=== PATIENT | male | born 1950 | race Caucasian/White ===

== ENCOUNTER 2021-10-29 15:53 | Emergency (ER) | payer MEDICARE ==
[~2021-10-29] VITALS: Ht 167.6 cm; Wt 99.8 kg
[2021-10-29] MEDS ORDERED: HYDROXYZINE HCL50 MG PO (19:08)
[2021-10-29] MEDS ORDERED: CLONIDINE HCL0.1 MG PO (19:08)
[2021-10-29] MEDS ORDERED: DOXYCYCLINE HY100 MG PO (19:21)
== END 2021-10-29 22:52 | disposition home or self-care (01) ==
LOC: ED 15:53
DX: L03.114 Cellulitis of left upper limb (principal)
CPT/HCPCS: 36415; 80053; 85025; 96365; 96366; 99283-25; J3370; J7060

== ENCOUNTER 2021-12-15 18:58 | Inpatient (IN) | payer MEDICARE ==
[~2021-12-15] VITALS: Ht 167.6 cm; Wt 85.8 kg
[~2021-12-15 18:58] MED LIST: CLONIDINE HCL0.1 MG PO; DOXYCYCLINE HY100 MG PO; HYDROXYZINE HCL50 MG PO
[2021-12-15] MEDS ORDERED: ARICEPT10 MG PO (21:04)
[2021-12-15] MEDS ORDERED: DICLOFENAC SOD100 GM TOP (21:04)
[2021-12-15] MEDS ORDERED: SEROQUEL50 MG PO (21:05)
[2021-12-15] MEDS ORDERED: PROTONIX40 MG PO (21:05)
[2021-12-15] MEDS ORDERED: SILDENAFIL20 MG PO (21:08)
[2021-12-15] MEDS ORDERED: TYLENOL EXTRA500 MG PO (21:10)
--- NOTE | 2021-12-15 23:27 | NUR ---
REPORT RECEIVED FROM ED. RHONA VENEGAS, WILL CONTINUE PLAN OF CARE WHEN PT ARRIVES TO THE UNIT.
--- NOTE | 2021-12-16 00:50 | NUR ---
PT ARRIVED TO THE UNIT AWAKE, ORIENTED ONLY TO SELF. PT BROUGHT DOWN VIA STRETCHER WITH HIS BELONGINGS. DRAW SHEETS USED TO TRANSFER PT TO THE CCU BED. VITALS THEN TAKEN (SEE CHART). PT ABLE TO ANSWER SOME QUESTIONS SUCH REPORTING PAIN, FEELING COLD. PT UNABLE TO ANSWER HEALTH HISTORY/ADMISSION QUESTIONS AT THIS TIME. PT IVF STARTED AND INFUSING AT ORDERED RATE PRN TYLENOL ADMINISTERED FOR FEVER (SEE MAR). ARAUZ THEN PLACED PER PROTOCOL, STERILE PROCEDURE FOLLOWED, 100ML OF URINE OBTAINED AFTER INSERTION. PT TOLERATED PLACEMENT OF ARAUZ WELL. PT ASSESSMENT COMPLETED. EYES PERRLA, PT ABLE TO FOLLOW SIMPLE COMMANDS AT TIMES. LUNGS CLEAR, HEART RATE TACHYCARED BUT REGULAR IN RYTHM, ACTIVE BOWEL TONES PRESENT, ABDOMEN SOFT, NO PAIN WHEN PALPATED. RADIAL AND PEDAL PULSES STRONG, SKIN INTACT. PT NOW RESTING IN BED AND REPORTS NO NEEDS WHEN ASKED. PT PROVIDED WITH SIPS OF ICE WATER. CALL LIGHT IN REACH, BED IN LOWEST POSITION, BED ALARM ON, WILL CONTINUE PLAN OF CARE.
--- NOTE | 2021-12-16 02:10 | NUR ---
PT LAYING IN BED SLEEPING AT THIS TIME ON ROOM AIR, IVF INFUSING ORDERED. VITALS TAKEN, AXILLARY TEMP 99.5. PT ARAUZ OUTPUT 75ML FOR 1.5 HRS. URINE IS CLEAR/YELLOW. PT AWOKE EASILY AND REPORTED NO NEEDS WHEN ASKED, PT STILL ORIENTED ONLY TO SELF. PT RETURNED BACK TO SLEEP. NO FURTHER NEEDS ASSESSED AT THIS TIME. CALL LIGHT IN REACH, BED IN LOWEST POSITION, BED ALARM ON, WILL CONTINUE PLAN OF CARE.
--- NOTE | 2021-12-16 04:30 | NUR ---
PT LAYING IN BED SLEEPING, IVF INFUSING ORDERED. PT TEMPERATURE ASSESSED AND WAS 99.2 AXILLARY. URINE OUTPUT IN ARAUZ 250ML CLEAR/YELLOW. PT AWOKE EASILY AT THIS TIME AND WAS ORIENTED TO SELF. PT REORIENTED TO SURROUNDINGS AND SITUATION. PT REPORTED BACK PAIN AND GENERAL ACHES BUT REPORTS FEELING BETTER WHEN ASKED. PRN TYLENOL ADMINISTERED FOR PAIN (SEE MAR). PT ABLE TO TAKE PO MEDICATION AND WATER WITHOUT DIFFICULTY. ASSESSMENT COMPLETED AFTERWARDS (SEE CHART). PT REPORTS NO FURTHER NEEDS AFTERWARDS, HEAD OF BED LOWERED, PT NOW RESTING IN BED WITH EYES CLOSED. CALL LIGHT IN REACH, BED IN LOWEST POSITION, BED ALARM ON, IVF INFUSING, WILL CONTINUE PLAN OF CARE.
--- NOTE | 2021-12-16 05:50 | NUR ---
PT IV ABX STARTED AND INFUSING ORDERED ALONG WITH IV ABX. PT RESTING IN BED SLEEPING AT THIS TIME AND WAS LEFT UNDISTURBED. RESPIRATIONS NOTED AND ARE EVEN AND UNLABORED. CALL LIGHT IN REACH, BED IN LOWEST POSITION, BED ALARM ON, WILL CONTINUE PLAN OF CARE.
--- NOTE | 2021-12-16 06:33 | NUR ---
PT LAYING IN BED ON ROOM AIR, IVF AND IV ABX INFUSING ORDERED. PT AWOKE EASILY BUT IS DROWSY. PT ORIENTED TO SELF BUT FORGETFUL AND WAS REORIENTED. SCHEDULED PO MEDICATION ADMINISTERED (SEE NOV). PT PROVIDED WITH ICE WATER. PT REPORTS NO FURTHER NEEDS AT THIS TIME WHEN ASKED, CALL LIGHT IN REACH, BED IN LOWEST POSITION, WILL CONTINUE PLAN OF CARE.
--- NOTE | 2021-12-16 08:59 | NUR ---
ASSESSMENT COMPLETED. PT ORIENTED TO SELF. LUNGS SOUND CLEAR THROUGHOUT. HR IN THE 90S. BREATHING EVEN AND UNLABORED. SPO2 =100% ON ROOM AIR. PT PAINFUL TO TOUCH IN EXTREMITIES. LIMITED MOBILITY IN ARMS. TRACE EDEMA IN BILATERAL LOWER LEGS. URINE COMING OUT OF ARAUZ CATHETER IS YELLOW, NO ODOR NOTED. IV LFUIDS INFUSING ALONG WITH ABX (SEE EMAR). MEDICATIONS ADMINISTERED. BED ALARM ON AND CALL LIGHT WITHIN REACH. WILL CONTINUE TO MONITOR.
--- NOTE | 2021-12-16 10:30 | NUR ---
STUDENT NURSE IN TO DO BED BATH. PT PAINFUL WITH TOUCH AND ANY MOVEMENT. POINTS OF PAIN PRIMARILY IN RIGHT ARM AND NECK. PER SECURITY AUDITOR AT [facility], PT NORMALLY AMBULATES INDEPENDENTLY AT BASELINE AND HAS BEEN COMPLAINING OF NOT FEELING WELL FOR THE LAST THREE DAYS. DR HOLLINS UPDATED WITH THIS INFORMATION AND ASSESSMENT FINDINGS. PLAN FOR PT TO GET A CT ESTABLISHED.
--- NOTE | 2021-12-16 12:11 | NUR ---
PT BACK FROM CT. PAIN WITH MOVMENT, PARTICULARILY PAINFUL WITH ANY MOVEMENT OF NECK. HEART RATE IN THE 70S SPO2 =96% ON ROOM AIR. BLOOD PRESSURE WNL. SECOND DOSE OF MAGNESIUM NOW INFUSING.
--- NOTE | 2021-12-16 13:55 | NUR ---
pt incontinent of urine. Two people required to provide incontient care. Pt very stiff and difficult to roll. Repositioned in bed
--- NOTE | 2021-12-16 15:16 | NUR ---
lumbar puncture completed by AMRIK John. Well tolerated by PT. specimens sent to lab
--- NOTE | 2021-12-16 17:18 | NUR ---
ASSESSMENT COMPLETED. PT HAD LARGE INCONTINENT VOID. COMPLETE BED CHANGE REQUIRED. PT HAS STAGE ONE WOUND ON COCCYX, PHOTOS TAKEN AND PLACED IN CHART. ALLEVYN DRESSING NOW IN PLACE. PT SHIVERING AND CONTINUES TO COMPLAIN OF GENERALIZED PAIN, WORSE IN RIGHT ARM. HEART RATE IN THE 90S, RESPIRATIONS IN THE MID 20S. AXILLARY TEMPERATURE OF 100.8 PRN TYLENOL GIVEN. IV FLUIDS AND ABX CONTINUE TO INFUSE (SEE EMAR). PILLOW PLACED UNDER BOTH ARM AND HEEL PROTECTORS ON FEET. WILL CONTINUE TO CLOSELY MONITOR.
--- NOTE | 2021-12-16 17:41 | NUR ---
DR HOLLINS UPDATED ON PTS TEMP AND ASSESSMENT FINDINGS. TWO SETS OF BLOOD CULTURES ORDERED AT THIS TIME. WILL CONTINUE CLOSELY MONITOR.
--- NOTE | 2021-12-16 18:45 | NUR ---
LAB IN TO DRAW BLOOD CULTURES.
--- NOTE | 2021-12-17 07:35 | NUR ---
REPORT RECIEVED, CARE OF PT ASSUMED AT THIS TIME.
--- NOTE | 2021-12-17 08:50 | NUR ---
ASSESSMENT AND MEDICATION ADMINISTRATION COMPLETED. PT ALERT BUT TOTALLY DISORIENTED. APPEARS LESS PAINFUL. MORE RANGE OF MOTION IN RIGHT ARM HAS IMPROVED. NECK STILL IN A HYPER EXTENDED POSITION WITH LIMITED MOTION. PT STILL STIFF. BED BATH AND PERICARE COMPLETED. PT FEARFUL WITH TURNING IN BED AND UNABLE TO ASSIST. PT TOLERATED MEDICATION ADMINISTRATION WELL AND IS NOW BEING FED BREAKFAST BY IZABELLA MELGOZA. AXILLARY TEMP OF 99.9, PT ALSO SHIVERING. IV FLUIDS AND ABX INFUSING. WILL CONTINUE TO MONITOR.
--- NOTE | 2021-12-17 13:39 | NUR ---
ASSESSMENT COMPLETED PT INCONTINENT OF URINE. PERICARE PROVIDED BY TWO RNS, NO REPOSTIONED ONTO LEFT SIDE. IV FLUIDS INFUSING. CALL LIGHT WITHIN REACH. WILL CONTINUE TO MONITOR.
--- NOTE | 2021-12-17 14:23 | EKG ---
[facility] [address] [facility] [place] [address] Signed Sinus tachycardia Inferior infarct , age undetermined Abnormal ECG No previous ECGs available Confirmed by BLANCA HOLLINS MD ([id number]) on 12/17/2021 2:23:10 PM Electronically Signed By: BLANCA HOLLINS MD 12/17/21 1423 PATIENT NAME: FELIX GUZMAN Electrocardiogram DATE OF : 46 PHYSICIAN: BLANCA HOLLINS MD REPORT #: [id number] REPORT IS CONFIDENTIAL AND NOT TO BE RELEASED WITHOUT AUTHORIZATION
--- NOTE | 2021-12-17 14:40 | NUR ---
PT INCONTINENT. PROVIDED ANA CARE AND REPOSITIONED IN BED. AXILLARY TEMP OF 100.5. MD NOTIFIED. NO NEW ORDERS AT THIS TIME.
--- NOTE | 2021-12-18 07:30 | NUR ---
RECEIVED REPORT FROM WINDOW DRESSER AND PERFORMED MORNING ASSESSMENT. PT IS ORIENTED TO SELF AND RESPONDS TO VOICE. PT EXPERIENCES PAIN IN ALL EXTREMETIES WITH ANY MOVEMENT AND REPORTS PAIN IN STOMACH WITH PALPATION. ALL VITALS ARE WNL BESIDES TEMP OF 100.3 TAKEN AXILLARY. ZOSYN PIGGYBACK LR IS INFUSING AT 25 MLS/HR IN RFA (20G). PERFORMED MEDICATION ADMINISTRATION AND BEGAN ACYCLOVIR AT 250 MLS/HR IN LAC (20G). ORAL MEDS WERE GIVEN WITH WATER AND PT TOLERATED WELL WITH NO DIFFICULTY SWALLOWING. REPOSITIONED PT IN BED AND IS NOW RESTING. CALL LIGHT WITHIN REACH, BED RAILS UP, WILL CONTINUE TO MONITOR.
[2021-12-18] MEDS ORDERED: LISINOPRIL-HCT1 EAC2 PO (08:59)
--- NOTE | 2021-12-18 09:00 | NUR ---
ASSISTED PT WITH EATING BREAKFAST. PT SWALLOWED LITTLE AMOUNT OF EGGS AND MILK WITH NO DIFFICULTY SWALLOWING. PT REQUESTING TO NOW REST. WILL CONTINUE TO MONITOR.
[2021-12-18] MEDS ORDERED: QUETIAPINE FUMA50 MG PO (09:03)
--- NOTE | 2021-12-18 09:06 | NUR ---
medications reconciled using MARS from [facility]ha Thomas. Changes noted
--- NOTE | 2021-12-18 10:00 | NUR ---
MORE ALERT. AM CARES GIVEN. TOLERATED WELL. ARAUZ CATH PATENT.
--- NOTE | 2021-12-18 11:30 | NUR ---
DR. HOLLINS HERE TO SEE PATIENT. PLAN TO KEEP PATIENT IN CCU WITH CURRENT TREATMENT.
--- NOTE | 2021-12-18 13:00 | NUR ---
TOOK LUNCH WELL. FED PATIENT APPROX 90 % OF LUNCH. PATIENT IS ABLE TO MOVE HIS ARMS/HANDS. WAS ABLE TO TAKE A FEW BITES OF LUNCH ON HIS OWN. NO COUGH NOTED WHEN SWALLOWING. CONTINUE TO HAVE INCREASED PAIN WITH MOVEMENT. ENC PATIENT TO ATTEMPT TO MOVE HIS LEGS. WHEN TURNING PATIENT, COMPLAINS OF INCREASE PAIN. PATIENT HAVINE DIFFICULTY TRACKING THOUGHTS.
--- NOTE | 2021-12-18 15:30 | NUR ---
HAS BEEN TALKING MORE TODAY, HOWEVER HAS DISORGANIZED THOUGHTS.
--- NOTE | 2021-12-18 19:08 | NUR ---
RESTING WITH HOB ELEVATED. REPORT TO NEXT SHIFT.
--- NOTE | 2021-12-18 20:00 | NUR ---
Pt is awake in bed, wathcing tv. Pleasant mood. Call light within reach. Compliant with assessment and answers questions appropriately. Denies pain. No signs of discomfort noted. VSS. IVF infusing as ordered. Navas catheter is patent with yellow urine draining to bag. Will cont to monitor.
--- NOTE | 2021-12-18 22:00 | NUR ---
Pt was compliant with medication administration; took meds whole w/ water w/o noted difficulty. Pt uses call light & verbalizes needs appropriately. VSS. Will continue to monitor.
--- NOTE | 2021-12-19 01:00 | NUR ---
Pt is resting in bed w/ his eyes closed at this time and appears comfortable. IVF infusing as ordered. Patent jones catheter with yellow urine draining to bedside bag. VSS. Call light w/in reach. Will continue to monitor.
--- NOTE | 2021-12-19 03:59 | NUR ---
Pt is resting in bed with his eyes closed and appears comfortable. VSS. IV patent with ivf infusing as ordered. Navas catheter patent and draining clear, yellow urine. No signs of pain or distress noted. Call light within reach. Will cont to monitor.
--- NOTE | 2021-12-19 08:35 | NUR ---
IN PATIENT'S ROOM FOR BREAKFAST, MEDS, ASSESSMENT AND VITAL SIGNS. PT STATES HE IS JUST WAKING UP AND HAS A HARD TIME STATING YEAR CORRECTLY, BUT DOES STATE NAME AND CORRECT. PT STATES HE IS HAVING PAIN IN HIS LITTLE FINGERS. PT ALSO NOTED TO BE STIFF IN BED, AND MOVING ANY EXT CAUSES DISCOMFORT. PT STATES HE NORMALLY LIVES IN [place], [place] AND THAT WE ARE CURRENTLY IN [place]. WHEN REORIENTED TO THAT HE IS IN THE HOSPITAL, HE STATES,"OH I AM?" NOW HELPING PATIENT TO EAT BREAKFAST. PT BOOSTED IN BED AND SAT UP MUCH TOLERATED. PT ON ROOM AIR AND APPEARS TO BE BREATHING COMFORTABLY W/O SIGNS OF DISTRESS. LUNGS ARE CLEAR ANTERIORLY WITH DIM BASES. PT HAS GEN EDEMA THROUGHOUT. ARAUZ DRAINING CLEAR YELLOW URINE. CONTINUE TO MONITOR.
--- NOTE | 2021-12-19 10:35 | NUR ---
Attempted to speak with pt and he is unable to answer questions. He believes he lives in [place] and his son is there also. He is able to state his joints hurt. He does not believe he uses a walker. Discussed with nurses I will call [facility] Thomas. Called and spoke with Tala. She states this pt has resided with them for approx. 1 year. His son, Felipe lives in [place] and is his Guardian/conservator. Pt is able to walk with out issue, he uses a shower chair for safety, but no other DME. Pt has Alzheimers and attemptes to leave and to get rides to [place] where he believes he lives with his family. Pt has been experiencing increased pain in his joints for the last 2-3 months and was given diclofenic gel by his PCP. Pt currently has a jones catheter in place. Per Radha Thomas pt may return when discharged.
--- NOTE | 2021-12-19 11:00 | NUR ---
DR. HOLLINS IN TO SEE PATIENT. PATIENT STATES, "WE ARE AT THAT PLACE, WITH THE DRY SPELLS," WHEN ASKED HOW HE IS FEELING AND WHERE HE IS CURRENTLY. PATIENT STILL PAINFUL IN HIS JOINTS THROUGHOUT, WITH ANY MOVEMENT OR TOUCHING OF ANY JOINT CAUSES PAIN. LABS TO BE DRAWN AND MEDS TO BE GIVEN. PT HELPED TO REPOSITION TO RIGHT SIDE AND POSITIONED WITH PILLOWS. PT VERY FEARFUL OF FALLING AND FALLING FORWARD WHEN NOT REALLY IN A CLOSE POSITION TO FALL. PT'S SENSE OF BALANCE SEEMS ALTERED. IV FLUIDS TO BE DECREASED TO 50 ML/HR.
--- NOTE | 2021-12-19 11:45 | NUR ---
LAB IN TO DRAW LABS.
--- NOTE | 2021-12-19 12:24 | NUR ---
REQUEST FOR RECORDS SENT TO [facility] IN [place] FOR PATIENT'S LAST 2 DISCHARGE SUMMARY'S, WELL LAST VISIT NOTE FROM HIS ONCOLOGIST. NOW RECEIVING THESE RECORDS ON FAX MACHINE. PT ASSESSMENT COMPLETE. PT REMAINS PLEASANTLY CONFUSED. PT HELPED TO EAT ABOUT 40-50% OF HIS LUNCH. PT TALKING ABOUT CATS THAT AREN'T IN THE ROOM, AND SAYING OTHER THINGS THAT INDICATE HALLUCINATIONS OR CONFUSION TO CURRENT PLACE. PT REMAINS IN A SINUS RHYTHM, HR IN THE 80s. LAST BP 126/83. ONE TIME DOSE OF TORADOL GIVEN AND WILL SEE HOW PATIENT'S PAIN SEEMS AFTER THIS DOSE.
--- NOTE | 2021-12-19 14:03 | NUR ---
ECHO IN ROOM WITH PATIENT. PATIENT TURNED TO LEFT SIDE AND POSITIONED WITH PILLOWS FOR COMFORT. PT SEEMS MORE COMFORTABLE OVERALL AND LESS PAINFUL WHEN BEING TURNED. PATIENT REMAINS ON ROOM AIR. BED BATH TO BE GIVEN AFTER ECHO.
--- NOTE | 2021-12-19 14:29 | NUR ---
ECHO DONE. PT CONTINUES TO REST-CURRENTLY ASLEEP AND APPEARS COMFORTABLE. BED BATH TO BE GIVEN. SP02 IS 94% ON ROOM AIR.
--- NOTE | 2021-12-19 15:00 | NUR ---
Bed bath given and linens changed. Pt tolerated fairly well, he did express some discomfort with rolling to sides and gianni care. Repositioned pt to right side with pillows. Pt was less interactive than this morning, responds to verbal stimulus still but minimally. He also had more difficulty swallowing PO potassium than he did this morning and required repeated coaching.
--- NOTE | 2021-12-19 15:53 | NUR ---
Assessment done, pt resting with eyes closed for exam.
--- NOTE | 2021-12-19 16:48 | NUR ---
DR. HOLLINS UPDATED ON DECREASED LOC AND GOOD RESPONSE TO LASIX WITH 875 ML URINE OUT. PLAN TO CONTINUE TO MONITOR AND HOLD PO MEDS FOR NOW, AND REASSESS WHEN HE IS MORE AWAKE.
--- NOTE | 2021-12-19 17:20 | NUR ---
Went into room to check on pt and he spit out a single 10 MEQ potassium pill. Multiple attempts made to re-administer it unsuccessfully.
--- NOTE | 2021-12-19 18:23 | NUR ---
Repositioned pt to left side and placed new IV in left forearm as previous one was inflamed and worsening with time so it was removed. Pt tolerated well, left to continue to rest with call light in reach.
--- NOTE | 2021-12-19 20:00 | NUR ---
Pt resting in bed with his eyes closed. Appears comfortable. Call light within reach. VSS. IVF infusing. Navas catheter in place and draining yellow urine. Will cont to monitor.
--- NOTE | 2021-12-19 22:00 | NUR ---
Pt continues resting in bed with his eyes closed. HOB elevated for medication administration. Pt tolerated oral medications and water without noted difficulty. Repositioned in bed. VSS. Call light within reach. Will cont to monitor.
--- NOTE | 2021-12-20 | NUR ---
Pt resting in bed with his eyes closed and appears comfortable. VSS. Respirations even and unlabored. Call light within reach. WIll continue to monitor.
--- NOTE | 2021-12-20 03:30 | NUR ---
Pt is resting in bed with his eyes closed and appears comfortable with no signs of pain/discomfort noted. IVF infusing as ordered. Navas catheter in place. VSS. Call light within reach. Will continue to monitor.
--- NOTE | 2021-12-20 07:50 | NUR ---
In to see pt, assessment done, morning meds given PO without issue. Pt more oriented than yesterday though only accurately identifies self, stating [place]" and the year is 2009. Less pain with movement and able to self-report pain scale and follow commands.
--- NOTE | 2021-12-20 08:58 | NUR ---
THIS OUTSIDE ENERGY SALES REPRESENTATIVES AT BEDSIDE TO ASSIST PATIENT WITH BREAKFAST. PATIENT ABLE TO FEED HIMSELF WITH LEFT HAND, STATES RIGHT HAND IS STIFFER AND HARDER TO MANIPULATE. 2PA FROM BED TO BSC FOR BM PATIENT NOW UP IN CHAIR USING FWW, PATIENT NEEDING SEVERAL CUES AND ASSISTANCE TO MOVE FROM BSC TO CHAIR. LEGS ELEVATED AND CALL LIGHT IN EASY REACH FAMILY IN ROOM AT THIS TIME.
--- NOTE | 2021-12-20 09:29 | NUR ---
Notified by staff, jono SALGADO is in the room and has questions. Spoke with Eliza Mares, jono SALGADO. She has questions regarding HH PT and if pt will be able to return to [facility]. Let her know I spoke with them yesterday and they had stated pt could return as long as he is a 1 person assist or less. PT will work with pt today and confirm he is able to walk. Pt was walking prior to admission, so I do not see this as a problem. Let NAOMI there are two agencies that provide HH PT and we can discuss if PT feels he is deconditioned and requires PT in the home.
--- NOTE | 2021-12-20 09:56 | NUR ---
PT SITTING UP IN CHAIR WITH FAMILY AND CASE MANAGEMENT TO DISCUSS PLAN FOR LATER DISCHARGE.
--- NOTE | 2021-12-20 10:00 | NUR ---
Dr. Senior in to see pt, pt demonstrates increased strength and decreased pain with touch and movement. Plan to hold IV fluids for now and re-evaluate based on I/O later in the day. Pt settled in chair with more warm blankets for comfort.
--- NOTE | 2021-12-20 10:42 | NUR ---
In room to administer celebrex, pt resting comfortably in chair. OT arrived to see pt as well.
--- NOTE | 2021-12-20 11:50 | NUR ---
IN ROOM TO DO ASSESSMENT, PT RESTING IN CHAIR. PT ABLE TO IDENTIFY THAT WE ARE IN [place] NOW, BUT UNSURE OF YEAR/LOCATION/EVENTS. PAIN WITH MOVEMENT SEEMS TO BE IMPROVED DOES LOC. JODIE PERES IN ROOM TO HELP PT EAT LUNCH WHILE SITTING UPRIGHT.
--- NOTE | 2021-12-20 12:00 | NUR ---
PATIENT SITITNG UP IN CHAIR FOR LUNCH, THIS STRATEGIC PARTNERSHIP MANAGER AT CHAIRSIDE FOR ASSISTANCE. PATIENT ABLE TO FEED HIMSELF WITH VERY LITTLE ASSISTANCE-ONLY NEEDING A FEW CUES. PATIENT USING RIGHT HAND TO EAT AND ALSO RAISING LEFT HAND WITH LITTLE DIFFICULTY. CALL LIGHT IN EASY REACH, NO OTHER NEEDS AT THIS TIME
--- NOTE | 2021-12-20 13:02 | NUR ---
Pt called out from his chair, requested to move to bed. Two person assist back to bed from armchair completed uneventfully. Pt settled into bed to rest.
--- NOTE | 2021-12-20 14:20 | NUR ---
Physical therapy in to see pt.
--- NOTE | 2021-12-20 16:29 | NUR ---
In to see pt to do assessment, pt resting comfortably in bed. Pt oriented to self only, but does identify years as "22-20" and states I "look a lot like Gu[place]upe". Pt grateful for drinks of water and would like to brush his teeth himself later today.
--- NOTE | 2021-12-20 18:35 | NUR ---
Pt resting in bed watching TV when I brought in dinner. Pt able to feed himself with some assistance. Pt turned to left side to rest with call light in reach.
--- NOTE | 2021-12-20 20:10 | NUR ---
GAVE REPORT TO DAVY MELGOZAPRODUCTION GRIP UNIT. HS MEDS GIVEN, PT ALERT AWARE MOVING TO DIFFERNT FLOOR ROOM . HX OF DEMENTIA, UNABLE TO REACH FAMILY TO INFORM OF TRANFER. WILL ATTEMPT TO CALL AGAIN. NO S,SX OF ANY DISTRESS NOTED. RESP EVEN AND UNLABORED. CORNELL MELGOZA TO TRANSFER PT TO MED SURG.
--- NOTE | 2021-12-20 20:11 | NUR ---
RECEIVED REPORT FROM BEATRIZ HARRIS RN, FOR PT TRANSFER TO MED/SURG, PT RECENT B/PP JUST TAKEN IS WITH THE PT SLEEPING. BEATRIZ MELGOZA SAID SHE WOULD CALL FAMILY TO NOTIFY OF TRANSFER
--- NOTE | 2021-12-20 20:55 | NUR ---
PT ARRIVED TO ROOM 110 TRANSFERED FROM CCU. HE IS ALERT AND VERBAL, NOT ORIENTED AT THIS TIME. NO DISTRESS NOTED. MICHELLE DREDGE CAPTAIN TO SETTLE PT AT THIS TIME
--- NOTE | 2021-12-20 20:57 | NUR ---
PT ARRIVED TO FLOOR, ROOM 110 @2044. VITALS COMPLETED AT 2044. BED ALARM PLACED PER CCU RECOMMENDATION, PT QUESTIONS HOW HIGH THIS BUILDING IS, AND WHEN ASK IF HE WAS , HE PAUSED, SAID NO. ASKED IF HE HAD BEEN BEFORE, HE SAID ABOUT 14 TIMES. PRIMARY RN DAVY IN WITH PT WELL.
--- NOTE | 2021-12-20 22:16 | NUR ---
PT RESTING IN BED TURNED TO HIS LEFT, HE IS AWAKE, CONFUSED, HE SAID "I NEED TO GET READY TO GO TO WORK" PT REORIENTED TO PLACE, AND ILLNESS, HE REMAINS CONFUSED, THIS RN EXPLAINED TO THE PT THAT IT IS AFTER 10 O'CLOCK AND HE NEEDS TO GET SOME SLEEP SO HE IS READY FOR HIS BUSY DAY TOMORROW. HE SAID "YEAH, I WILL BE A SLEEP HERE IN JUST A FEW MINUTES" THIS RN SAID "GOOD NIGHT FELIX"
--- NOTE | 2021-12-20 22:58 | NUR ---
PT RESTING IN BED EYES CLOSED RR 16 BPM, NO DISTRESS NOTED AT THIS TIME.
--- NOTE | 2021-12-21 02:58 | NUR ---
PT REPOSTIONED IN BED, PILLOWS TO SUPPORT RAJESH PROCESSES, PT MOVED HIS ARM AROUND WITH ACTIVITY AND THEN SETTLED BACK TO SLEEP. ARAUZ EMPTIED FOR 760ML YELLOW URINE.
--- NOTE | 2021-12-21 05:09 | NUR ---
PT TRANSFERED FROM CCU AT 2049, HE HAS BEE CONFUSED/DISORIENTED, COOPERATES WITH CARE, HE HAS SLEPT WELL OVER SHIFT, TURN Q2 AND PRN, HE HAS CURRENT OPENING SORE ON COCCYX WITH DRESSING IN PLACE AT THIS TIME. NO NEW CONCERNS OVER SHIFT, HE HAS HAD Q.S. URINE OUT OF ARAUZ CATHETER THAT IS NOT CHRONIC.
--- NOTE | 2021-12-21 06:53 | NUR ---
PT REPOSITIONED, SHEETS/BLANKETS STRAIGHTENED OUT. PT SWALLOWED AM MED PROTONIX WELL SWALLOWED WELL, NO COUGH OR SIGNS OF ASPIRATION. HE IS PAINFUL WITH MOVEMENT/ACTIVITY INCLUDING REPOSITIONING IN BED. ARAUZ CARE PROVIDED
--- NOTE | 2021-12-21 08:13 | NUR ---
Assessment completed, patient repositioned to his right side. New sacral dressing placed to the blanchable coccyx area. Navas catheter in place.
--- NOTE | 2021-12-21 10:10 | NUR ---
PAITENT IS LAYING IN BED ON RIGHT SIDE. ROTATED TO BACK WITH PILLOW UNDER RIGHT AND LEFT HIP WELL UNDER LEGS TO FLOAT THE PAITENT. VITALS AND I&O CHARTED. CALL LIGHT WITHIN REACH. NO FURTHER TASKS AT THIS TIME.
--- NOTE | 2021-12-21 12:00 | NUR ---
Notified by staff, pts family are in the room. Spoke with Son and DIL. They have moved pt out of [facility] and they are in the process of moving to [place], [place]. State they have a loaded moving van and it needs to be returned by Saturday. They would like pt placed in the [facility] in [facility] and they have been speaking with them. They will tour the place tomorrow in [place]. They are unsure if this is a SNF. They were able to give me the phone number and I was able to call. They are an assisted living and cannot take pts with a 2 person assist. They did give me the names of 2 SNFs [facility]. I called [facility] [phone] and left a message and [facility] [phone]. This is an admission number for 15 nursing homes. They state they do have beds open and request I send a chart. Spoke with family and they are attempting to decide if they should take pt with them or have in placed in a SNF here. Let them know I will speak with Dr. Senior to check if pt could dc tomorrow.
--- NOTE | 2021-12-21 12:43 | NUR ---
Removed jones catheter at 1220, 625 ml output. With the heavy assist of 3 the patient was moved from the bed to the chair. Patient requesting pain medication as well.
--- NOTE | 2021-12-21 14:10 | NUR ---
PT SITTING INN CHAIR, TV ON. PT SLOW TO RESPOND, BUT ANSWERS APPROPRIATELY. PT SAID HE WAS CHILLED-GOT WARM BLANKED FOR PT. HE EXPRESSED GRATITUDE. PT SAID HE WAS FROM [place] AND WAS USED TO THIS TYPE OF SPRING WEATHER. PT SAID HIS PARENTS WERE THERE AND WAITING FOR THEM TO RETURN. RHONA MONTERROSO INFORMED ME PT HAS SOME DEMENTIA AND CONFUSED HIS KIDS THAT ARE MOVING TO [place]. GAVE ENCOURAGEMENT, WILL FOLLOW
--- NOTE | 2021-12-21 14:30 | NUR ---
Spoke with Dr. Senior and pt could dc, it feels this pt is heavy care and it would be difficult for pt to take him to [place]. He feels it would be best if pt was placed in SNF and completed rehab before he leaves the area. I called [facility] and spoke with Kathy. She states they discharged a pt today. She requests a chart. Chart faxed with face sheet, H&P, progress notes,Covid test, PT/OT notes. Called Radha and confirmed, pt has been vaccinated with [employer] and boosted with [employer] in July.
--- NOTE | 2021-12-21 14:54 | NUR ---
OT working with this patient at this time.
--- NOTE | 2021-12-21 15:00 | NUR ---
Spoke with son, they have decided they will take the [place] to [place]. Discussed my visit with Dr. Senior,they believe its best to not leave the pt. Son states they will transport pt and it is a [address] They have been speaking with [facility] and they have a room for this pt, they are awaiting the chart. Chart faxed to [phone]. Discussed pts need for travel. Family will parts picker a loaner wc from [place]. I will request a urinal and depends to be sent with this pt. Son states they have adult children who will assist. They would like to pick pt up and leave at [address] Senior and confirmed he will complete SNF orders.
--- NOTE | 2021-12-21 15:33 | NUR ---
Naty notified pt will dc tomorrow at 8 am and will need a urinal and depends.
--- NOTE | 2021-12-21 16:20 | NUR ---
Call from pts family stating [facility] has not received a chart. Informed I have been speaking with Francy and I have faxed x 3. Per Francy their fax is busy and I should cont. to try.
--- NOTE | 2021-12-21 17:02 | NUR ---
Patient is still up in the chair, after dinner we will return him to bed and bladder scan him as well. He has had 1 incontinent episode of urine about 153
--- NOTE | 2021-12-21 18:03 | NUR ---
Received confirmation chart fax was completed after 5th fax.
--- NOTE | 2021-12-21 18:54 | NUR ---
With the assist of myself and the FORENSIC EXAMINER, we were able to get the patient with a gait belt from the chair (as close to the bed as possible) back to bed. He was attends was check, his coccyx wound checked, and he was bladder scanned as well. He was then placed on his left side.
--- NOTE | 2021-12-21 19:00 | NUR ---
SHIFT REPORT RECEIVED FROM DAYSHIFT RN LOC, pt AWAKE AND RESTING IN BED. ON RA, RR EVEN AND UNLABORED. NO DISTRESS NOTED, BED ALARM ON FOR SAFETY AND CALL LIGHT IN REACH.
[2021-12-21] MEDS ORDERED: CELECOXIB200 MG PO (19:17)
[2021-12-21] MEDS ORDERED: PROTONIX40 MG PO (19:18)
--- NOTE | 2021-12-21 22:00 | NUR ---
in to get vitals, fresh ice water, pt incont of urine, changed with rn, no further needs at this time
--- NOTE | 2021-12-21 22:19 | NUR ---
ASSESSMENT COMPLETE, SCHEDULED MEDS GIVEN (SEE EMAR). HX DEMENTIA, WHEN ASKED pt HIS NAME AND - pt REPORTS WITH "LUIS DODGE". BED ALARM REMAINS ON FOR SAFETY. MEDS GIVEN WITHOUT ISSUE. ALLEVYN TO COXXY C/D/I, pt REPOSITIONED IN BED AND BOOSTED. BILATERAL HIPS FLOATED. MINIMAL BLE EDEMA IN FEET, ELEVATE TOLERATED IN BED. IV SITE WNL, IV SITE FLUSHES EASILY AND IS SALINE LOCKED.NO FURTHER NEEDS OR CONCERNS VERBALIZED, CALL LIGHT REMAINS IN REACH.
--- NOTE | 2021-12-22 00:30 | NUR ---
IN TO REPOSTION PT, PILLOW REMOVED FROM RIGHT SIDE, LEFT SIDE REMAINS WITH PILLOW, PT RESTING DURING ACTION
--- NOTE | 2021-12-22 01:41 | NUR ---
pt RESTING IN BED WITH EYES CLOSED, RR EVEN AND UNLABORED. NO DISTRESS NOTED.ON RA, HOB ELEVATED. BED ALARM REMAINS ON FOR SAFETY AND CALL LIGHT IN REACH.
--- NOTE | 2021-12-22 02:30 | NUR ---
ROUNDED ON pt, pt INCONTINENT OF URINE. ANA CARE DONE AND DRY ATTENDS NOW IN PLACE. WITH HELP FROM SHEET METAL SUPERINTENDENTRHONA WATERMAN, pt BOOSTED IN BED AND REPOSITIONED. PILLOW UNDER LEFT SIDE, RIGHT SHOULDER/ARM, AND BLE. NO CHANGES TO ASSESSMENT, WARM BLANKETS PROVIDED AND ROOM TEMP INCREASED AFTER pt REPORTS FEELING COLD. BED ALARM RESUMED AND CALL LIGHT IN REACH.
--- NOTE | 2021-12-22 04:25 | NUR ---
pt CONITNUE TO REST IN BED WITH EYES CLOSED AND RR EVEN AND UNLABORED. BED ALARM REMAINS ON AND CALL LIGHT IN REACH.
--- NOTE | 2021-12-22 04:35 | NUR ---
IN TO REMOVE PILLOW FROM LEFT SIDE, CHECKED PTs ATTENDS, NEW PERIPAD INPLACE DUE TO INCONT URINE, BED ALARM REMAINS IN PLACE
--- NOTE | 2021-12-22 06:13 | NUR ---
RT SANJAY IN ROOM TO COLLECT ORDERED COVID SWAB FOR DISCHARGE.
--- NOTE | 2021-12-22 06:57 | NUR ---
scheduled protonix given, see emar. am vss and i&o's completed by jose de jesus alcala. bed alarm remaisn on for safety.
--- NOTE | 2021-12-22 07:10 | NUR ---
Faxed face sheet, orders, PASRR, dc summary, and covid test to [facility]. Family plan on pt discharging at 0800 and leaving for [place].
== END 2021-12-22 11:00 | disposition home or self-care (01) | DRG 549 ==
LOC: ED 18:58 → CCU 23:15 → MS 12-20 20:45
PROVIDERS: ADMIT Internal Medicine; ATTEND Internal Medicine
DX: M00.80 Arthritis due to other bacteria, unspecified joint (principal); R65.10 Systemic inflammatory response syndrome (SIRS) of non-infectious origin without acute organ dysfunction; N17.9 Acute kidney failure, unspecified; F02.81 Dementia in other diseases classified elsewhere, unspecified severity, with behavioral disturbance; I27.20 Pulmonary hypertension, unspecified; K21.9 Gastro-esophageal reflux disease without esophagitis; G30.9 Alzheimer's disease, unspecified; Z66 Do not resuscitate; Z87.11 Personal history of peptic ulcer disease; Z79.899 Other long term (current) drug therapy; M47.9 Spondylosis, unspecified; Z20.822 Contact with and (suspected) exposure to COVID-19; D72.829 Elevated white blood cell count, unspecified; Z85.72 Personal history of non-Hodgkin lymphomas; B97.6 Parvovirus as the cause of diseases classified elsewhere
CPT/HCPCS: 36415; 51701; 70470; 70491; 71045; 72125; 74177; 80048; 80053; 81001; 82553; 82945; 83605; 83735; 84100; 84157; 84550; 85025; 86038; 86060; 86140; 86200; 86431; 86665; 86705; 86803; 87040; 87070; 87205; 89051; 93005; 93010; 93306; 97162; 97166; 97530; 99285-25; A9270; C9803; J0133; J1650; J1885; J1940; J2543; J3475; J7060; J7121; Q9967; U0003